=== PATIENT | male | born 1955 | race Caucasian/White ===

== ENCOUNTER 2023-01-09 14:52 | Outpatient (REF) | payer MEDICARE, SELFPAY ==
--- OUTSIDE RECORDS SUMMARY | 2023-01-09 14:57 | XMS_ITS | CCD ---
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 Allergies Unknown or Not Available. Procedures Unknown or Not Available. History of Immunizations Unknown or Not Available. Problems Unknown or Not Available. Results Unknown or Not Available. Active Medications Unknown or Not Available. Medications Administered During Visit Unknown or Not Available. Encounters Encounter Diagnosis Diagnosis Code Start Date Residual hemorrhoidal skin tags K644 07/25/2022 Social History Smoking Status Code Start Date End Date Former smoker [id number] Patient Decision Aids Unknown or Not Available. Discharge Instructions You were admitted to [facility] on 07/25/2022 11:56 with a principal diagnosis of Residual hemorrhoidal skin tags You were discharged from [facility] on 07/25/2022 00:00 Should you have any questions prior to discharge, please contact a member of your healthcare team. If you have left the hospital and have any questions, please contact your primary care physician. Chief Complaint and Reason For Visit Unknown or Not Available. Function Status Unknown or Not Available. Plan of Care Unknown or Not Available. Referral/Transition of Care Unknown or Not Available.
--- OUTSIDE RECORDS SUMMARY | 2023-01-09 14:58 | XMS_ITS | CCD ---
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 BP Systolic 135 mmHg 08/15/2022 14:14 Initial VS BP Diastolic 72 mmHg 08/15/2022 14:14 Initia l VS Respiratory Rate 14 bpm 08/15/2022 14:14 In itial VS Heart Rate 68 bpm 08/15/2022 14:14 Initial VS O2 % BldC Oximetry 98 % 08/15/2022 14:14 Initial VS Body Temperature 36 degrees 08/15/2022 14:14 In itial VS Allergies Unknown or Not Available. Procedures Procedure Code Procedure Type Date Colsc Flx w/[place] [address] CPT 08/15/2022 Colonoscopy, Flexible, Proxi mal To Splenic Flexure; w/Bx, Single/Multiple 20287 CPT 08/15/2022 History of Immunizations Unknown or Not Available. Problems Unknown or Not Available. Results Unknown or Not Available. Active Medications Unknown or Not Available. Medications Administered During Visit Unknown or Not Available. Encounters Encounter Diagnosis Diagnosis Code Start Date Encounter for screening for malignant neoplasm o f colon [id number] 08/15/2022 Social History Smoking Status Code Start Date End Date Former smoker [id number] Patient Decision Aids Unknown or Not Available. Discharge Instructions You were admitted to [facility] on 08/15/2022 12:01 with a principal diagnosis of Encounter for screening for malignant neoplasm of colon You had the following procedures done:Colsc Flx w/Rmvl Of Tumor Polyp Lesion Snare TqColonoscopy, Flexible, Proximal To Splenic Flexure; w/Bx, Single/Multiple You were discharged from [facility] on 08/15/2022 14:24 Should you have any questions prior to [...]
[2023-01-09 15:39] LABS: HGB 14.7 g/dL (13.5-17.5); MCH 30.6 pg (27.0-33.0); MCHC 33.4 % (32.0-36.0); MCV 92 fL (80-95); MPV 9.2 fL (8.0-11.0); Platelet Count 322 10^3/uL (130-400); RDW 12.4 % (11.8-14.1); RDW-SD 41.9 fL; WBC 4.98 10^3/uL (4.4-10.8)
[2023-01-09 16:06] LABS: ALT 25 U/L (16-63); AST 22 U/L (15-37); Albumin 3.6 g/dL (3.4-5.0); Alkaline Phosphatase 96 U/L (46-116); Anion Gap 9.7 mmol/L (3-11); BUN 17 mg/dL (7-18); Bilirubin, Total 0.3 mg/dL (0.2-1.0); CO2 24.3 mmol/L (21.0-32.0); CREATININE 0.9 mg/dL (0.70-1.30); Calcium 8.5 mg/dL (8.5-10.1); Calculated LDL 144 mg/dL (<100); Chloride 107 mmol/L (98-107); Cholesterol 230 mg/dL (<200); Estimated GFR 93.61 (mL/min/1.73m2); Glucose 105 mg/dL (74-106); HDL Cholesterol 72 mg/dL (40-60); Sodium 141 mmol/L (136-145); Triglyceride 71 mg/dL (<150)
== END 2023-01-09 14:53 | disposition home or self-care (01) ==
LOC: NCHCN 14:52
PROVIDERS: PCP Internal Medicine; Visit Provider Internal Medicine
DX: Z00.00 Encounter for general adult medical examination without abnormal findings (principal); Z13.220 Encounter for screening for lipoid disorders
CPT/HCPCS: 80053; 80061; 85027

== ENCOUNTER 2024-01-17 08:59 | Outpatient (REF) | payer MEDICARE, SELFPAY ==
[2024-01-17 15:24] LABS: Calculated LDL 158 mg/dL (<100); Cholesterol 247 mg/dL (<200); HDL Cholesterol 76 mg/dL (40-60); Triglyceride 66 mg/dL (<150)
== END 2024-01-17 09:00 | disposition home or self-care (01) ==
LOC: NCHCN 08:59
PROVIDERS: PCP Internal Medicine; Visit Provider Internal Medicine
DX: E78.5 Hyperlipidemia, unspecified (principal)
CPT/HCPCS: 80061

== ENCOUNTER 2025-01-13 10:07 | Outpatient (REF) | payer MEDICARE, SELFPAY ==
[2025-01-13 14:57] LABS: HCT 42.9 % (40.0-50.0); HGB 14.4 g/dL (13.5-17.5); MCH 30.4 pg (27.0-33.0); MCHC 33.6 % (32.0-36.0); MCV 91 fL (80-95); MPV 9.1 fL (8.0-11.0); Platelet Count 295 10^3/uL (130-400); RBC 4.73 10^6/uL (4.36-5.78); RDW 12.4 % (11.8-14.1); RDW-SD 41.1 fL; WBC 4.46 10^3/uL (4.4-10.8)
[2025-01-13 15:18] LABS: ALT 30 U/L (16-63); AST 22 U/L (15-37); Albumin 3.6 g/dL (3.4-5.0); Alkaline Phosphatase 90 U/L (46-116); Anion Gap 5.0 mmol/L (3-11); BUN 15 mg/dL (7-18); Bilirubin, Total 0.4 mg/dL (0.2-1.0); CO2 29.0 mmol/L (21.0-32.0); Calcium 9.0 mg/dL (8.5-10.1); Calculated LDL 169 mg/dL (<100); Chloride 104 mmol/L (98-107); Cholesterol 258 mg/dL (<200); Estimated GFR 95.80 (mL/min/1.73m2); Glucose 106 mg/dL (74-106); HDL Cholesterol 74 mg/dL (>or=40); Potassium 4.3 mmol/L (3.5-5.1); Sodium 138 mmol/L (136-145); Total Protein 7.0 g/dL (6.4-8.2); Triglyceride 79 mg/dL (<150)
== END 2025-01-13 10:08 | disposition home or self-care (01) ==
LOC: NCHCN 10:07
PROVIDERS: PCP Internal Medicine; Visit Provider Internal Medicine
DX: Z00.00 Encounter for general adult medical examination without abnormal findings (principal)
CPT/HCPCS: 80053; 80061; 85027